=== PATIENT | female | born 1990 | race Caucasian/White ===

== ENCOUNTER 2019-04-26 19:54 | Emergency (ER) | payer OTHER ==
[~2019-04-26] VITALS: Ht 157.5 cm; Wt 47.6 kg
[2019-04-26] MEDS ORDERED: AMOXICILLIN500 MG (20:03)
[2019-04-26] MEDS ORDERED: ADVIL100 MG (20:04)
== END 2019-04-26 21:05 | disposition home or self-care (01) ==
LOC: ER 19:54 → EDBD 20:31 → ER 20:31
DX: H66.91 Otitis media, unspecified, right ear (principal)